=== PATIENT | female | born 1955 | race Caucasian/White ===

== ENCOUNTER 2018-06-17 20:48 | Inpatient (IN) | payer OTHER ==
[~2018-06-17] VITALS: Ht 172.7 cm; Wt 72.3 kg
[~2018-06-17 20:48] MED LIST: ACET325T26 PO; ALPR0.254 PO; AMLO10TA2 PO; AMLO5TAB2 PO; AMOX250C17 PO; ASCO10004 PO; ASPI-515 PO; ATOR20TA9 PO; CITA10TA4 PO; DOCU100C33 PO; FERROUS SULFATE PO; HYDR12.53 PO; HYDR25TA6 PO; LOSA25TA5 PO; MULT-516 PO; OMEP-110 PO; OXYC-302 PO; POTA20LI PO; ROPI1TAB2 PO
[2018-06-17] MEDS ORDERED: ONDANSETRON 2MG/ML, 2ML IVPush ONE (21:30)
[2018-06-17] MEDS ORDERED: MORPHINE SULFATE 4 MG/ML, 1ML IVPush PRN (21:30)
[2018-06-17] MEDS ORDERED: SODIUM CHLORIDE FLUSH 10ML SYR IVF ONE (21:30)
[2018-06-17] MEDS ORDERED: ONDANSETRON 2MG/ML, 2ML ONE (21:33)
[2018-06-17] MEDS ORDERED: MORPHINE SULFATE 4 MG/ML, 1ML ONE (21:33)
[2018-06-17] MEDS ORDERED: HYDROmorphone 2 MG/ML, 1ML ONE (22:26)
[2018-06-17] MEDS: HYDROmorphone 1 MG/ML, 1ML IVPush PRN ×2 (22:28→23:09)
[2018-06-17 22:33] LABS: BASOPHILS # (AUTO) 0.04 x10^3/uL (0-0.1); BASOPHILS % (AUTO) 0 % (0-1); EOSINOPHILS # (AUTO) 0.07 x10^3/uL (0-0.4); EOSINOPHILS % (AUTO) 1 % (1-7); LYMPHOCYTES % (AUTO) 10 % (22-44); MD NO; MEAN CORPUSCULAR HEMOGLOBIN 33.2 pg (27.0-34.8); MEAN CORPUSCULAR HGB CONC 34.9 g/dL (32.4-35.8); MEAN CORPUSCULAR VOLUME 95.3 fL (80-100); MEAN PLATELET VOLUME 8.3 fL (7.4-10.4); MONOCYTES # (AUTO) 0.79 x10^3/uL (0.2-0.8); MONOCYTES % (AUTO) 7 % (2-9); NEUTROPHILS # (AUTO) 9.16 x10^3/uL (1.8-6.8); NEUTROPHILS % (AUTO) 82 % (42-75); PLATELET COUNT 265 x10^3/uL (130-400); RED BLOOD COUNT 3.75 x10^6/uL (3.82-5.3); RED CELL DISTRIBUTION WIDTH 12.8 % (9.6-15.2)
[2018-06-17 22:45] LABS: ALBUMIN 3.9 g/dL (3.4-5.0); ANION GAP 8 mmol/L (5-15); CALCIUM 8.3 mg/dL (8.5-10.1); CHLORIDE 105 mmol/L (98-107); CREATININE 0.89 mg/dL (0.55-1.02)
[2018-06-17] MEDS ORDERED: SODIUM CHLORIDE 0.9% 1,000 ML IV SCH (23:33)
[2018-06-18] VITALS: BP 130/73
[2018-06-18] MEDS ORDERED: ONDANSETRON 2MG/ML, 2ML IVPush PRN
[2018-06-18] MEDS ORDERED: POLYETHYLENE GLYCOL 17 GM PACKET PO PRN
[2018-06-18] MEDS ORDERED: BISACODYL 10 MG SUPP PR PRN
[2018-06-18] MEDS ORDERED: POTASSIUM CHLORIDE 20 MEQ TAB.ER.PRT PO ONE
[2018-06-18] MEDS: morphine SULFATE 10 MG/ML, 1ML IVPush PRN ×6 (01:05→18:45)
[2018-06-18] MEDS: NICOTINE 21 MG/24 HR PATCH.TD24 TD SCH (01:56)
[2018-06-18 02:02] VITALS: BP 132/74
[2018-06-18] MEDS ORDERED: KETOROLAC 30 MG/1 ML ONE (03:07)
[2018-06-18] MEDS: KETOROLAC 30 MG/1 ML IM SCH ×2 (03:13→09:08)
[2018-06-18 04:01] VITALS: BP 121/74
[2018-06-18 05:45] LABS: BASOPHILS % (AUTO) 0 % (0-1); EOSINOPHILS # (AUTO) 0.01 x10^3/uL (0-0.4); EOSINOPHILS % (AUTO) 0 % (1-7); LYMPHOCYTES # (AUTO) 0.84 x10^3/uL (1-3.4); LYMPHOCYTES % (AUTO) 9 % (22-44); MD NO; MEAN CORPUSCULAR HGB CONC 34.6 g/dL (32.4-35.8); MEAN CORPUSCULAR VOLUME 95.5 fL (80-100); MEAN PLATELET VOLUME 8.6 fL (7.4-10.4); MONOCYTES # (AUTO) 0.75 x10^3/uL (0.2-0.8); MONOCYTES % (AUTO) 8 % (2-9); NEUTROPHILS # (AUTO) 7.59 x10^3/uL (1.8-6.8); NEUTROPHILS % (AUTO) 83 % (42-75); PLATELET COUNT 248 x10^3/uL (130-400); RED BLOOD COUNT 3.61 x10^6/uL (3.82-5.3); RED CELL DISTRIBUTION WIDTH 12.8 % (9.6-15.2)
[2018-06-18 05:55] LABS: ALBUMIN 3.8 g/dL (3.4-5.0); ANION GAP 8 mmol/L (5-15); CALCIUM 7.9 mg/dL (8.5-10.1); CHLORIDE 105 mmol/L (98-107)
[2018-06-18 06:00] LABS: ALANINE AMINOTRANSFERASE 99 U/L (12-78); ALKALINE PHOSPHATASE 98 U/L (45-117); BILIRUBIN,TOTAL 0.4 mg/dL (0.2-1.0); TOTAL PROTEIN 6.8 g/dL (6.4-8.2)
[2018-06-18 06:57] VITALS: BP 127/76
[2018-06-18] MEDS ORDERED: POTASSIUM CHLORIDE 40 MEQ in SODIUM CHLORIDE 0.9% 500 ML IV ONE (07:00)
[2018-06-18] MEDS: HEPARIN 5,000 UNITS/ML, 1ML SQ SCH ×3 (08:00→16:00)
[2018-06-18] MEDS: FERROUS SULFATE 325 MG TABLET PO SCH (08:09)
[2018-06-18] MEDS: MULTIVITAMIN 1 TABLET PO SCH (08:09)
[2018-06-18] MEDS: CITALOPRAM 10 MG TABLET PO SCH (08:09)
[2018-06-18] MEDS: OMEPRAZOLE 20 MG CAPSULE.DR PO SCH (08:10)
[2018-06-18] MEDS: SENNA/DOCUSATE TABLET PO SCH (08:10)
[2018-06-18] MEDS: ASCORBIC ACID 500 MG TABLET PO SCH (08:10)
[2018-06-18] MEDS: NS + 20MEQ KCL 1,000 ML IV SCH (09:00)
[2018-06-18] MEDS: LOSARTAN 25MG TABLET PO SCH (09:08)
[2018-06-18] MEDS: AMLODIPINE 5 MG TABLET PO SCH (09:08)
[2018-06-18 09:52] LABS: INTERNATIONAL NORMALIZED RATIO 0.97 (0.93-1.1)
[2018-06-18] MEDS ORDERED: POTASSIUM CHLORIDE 20 MEQ in SODIUM CHLORIDE 0.9% 250 ML IV ONE (11:30)
[2018-06-18 14:05] VITALS: BP 119/74
[2018-06-18] MEDS ORDERED: MIDAZOLAM 1 MG/ML, 2ML ONE (14:15)
[2018-06-18] MEDS ORDERED: FENTANYL PF 250 MCG/5ML ONE (14:15)
[2018-06-18] MEDS ORDERED: PROPOFOL 10 MG/ML, 20ML ONE (14:16)
[2018-06-18] MEDS ORDERED: ROCURONIUM 10MG/ML,5ML ONE (14:17)
[2018-06-18] MEDS ORDERED: NEOSTIGMINE 1 MG/ML, 10ML ONE (14:39)
[2018-06-18] MEDS ORDERED: GLYCOPYRROLATE 0.4 MG/2 ML, 2ML ONE (14:39)
[2018-06-18] MEDS ORDERED: DEXAMETHASONE 4 MG/ML, 1ML ONE ×2 (14:40)
[2018-06-18] MEDS ORDERED: ONDANSETRON 2MG/ML, 2ML ONE (14:40)
[2018-06-18] MEDS ORDERED: WATER-INJECTION,STERILE 10 ML IV ONE (14:41)
[2018-06-18] MEDS ORDERED: CEFAZOLIN 1,000 MG ONE ×2 (14:41)
[2018-06-18] MEDS ORDERED: MORPHINE SULFATE 4 MG/ML, 1ML IVPush PRN (16:00)
[2018-06-18] MEDS ORDERED: hydrALAzine 20 MG/ML, 1ML IV PRN (16:00)
[2018-06-18] MEDS ORDERED: MEPERIDINE/PF 25MG/0.5ML IVPush PRN (16:00)
[2018-06-18] MEDS ORDERED: OXYcodone 5 MG/5 ML ORAL.SOL UDC PO PRN (16:00)
[2018-06-18] MEDS ORDERED: ONDANSETRON 2MG/ML, 2ML IV PRN ×2 (16:00→19:00)
[2018-06-18] MEDS ORDERED: LABETALOL 5MG/ML, 20ML IV PRN (16:00)
[2018-06-18] MEDS ORDERED: ALBUTEROL SULFATE 2.5 MG/3 ML NPPB PRN (16:00)
[2018-06-18] MEDS ORDERED: PROMETHAZINE 25 MG/ML, 1ML IV PRN (16:00)
[2018-06-18] MEDS ORDERED: HYDROmorphone 1 MG/ML, 1ML IV PRN ×2 (16:00→19:00)
[2018-06-18] MEDS ORDERED: PROMETHAZINE 25 MG SUPP PR PRN (16:00)
[2018-06-18] MEDS ORDERED: ONDANSETRON ODT 8 MG PO PRN (16:00)
[2018-06-18] MEDS ORDERED: ACETAMINOPHEN 325 MG TABLET PO PRN ×2 (16:00)
[2018-06-18] MEDS ORDERED: PROMETHAZINE 12.5 MG SUPP PR PRN (16:00)
[2018-06-18] MEDS ORDERED: FENTANYL PF 100 MCG/2ML IV PRN (16:00)
[2018-06-18] MEDS ORDERED: PHENYLEPHRINE 10 MG/ML ONE (16:17)
[2018-06-18] MEDS ORDERED: OXYcodone 5 MG/5 ML ORAL.SOL UDC ONE (17:18)
[2018-06-18] MEDS ORDERED: ACETAMINOPHEN 650 MG/20.3 ML UDC ONE (17:18)
[2018-06-18 17:22] LABS: AMPHETAMINE SCREEN, URINE Negative (Negative); BARBITURATE SCREEN, URINE Negative (Negative); BENZODIAZEPINE SCREEN, URINE Positive (Negative); CANNABINOID SCREEN, URINE Negative (Negative)
[2018-06-18 17:23] LABS: COCAINE SCREEN, URINE Negative (Negative); METHADONE SCREEN, URINE Negative (Negative); OPIATE SCREEN, URINE Positive (Negative)
[2018-06-18] MEDS ORDERED: FENTANYL PF 100 MCG/2ML ONE (17:34)
[2018-06-18] MEDS ORDERED: MEPERIDINE/PF 25MG/0.5ML ONE (17:40)
[2018-06-18] MEDS ORDERED: DIPHENHYDRAMINE 25 MG CAPSULE PO PRN (19:00)
[2018-06-18] MEDS ORDERED: HYDROcodone/APAP 7.5-325MG/15ML UDC PO PRN (19:00)
[2018-06-18 20:00] VITALS: BP 93/53
[2018-06-18] MEDS: DOCUSATE 100 MG CAPSULE PO SCH (22:56)
[2018-06-18] MEDS: CEFAZOLIN PMX 1GM/50ML 50 ML IVPB SCH (22:56)
[2018-06-18] MEDS: ATORVASTATIN 20 MG TABLET PO SCH ×2 (22:56)
[2018-06-18] MEDS: KETOROLAC 30 MG/1 ML IV SCH (22:57)
[2018-06-19 00:45] VITALS: BP 102/64
[2018-06-19] MEDS: OXYcodone/APAP 5/325MG TABLET PO PRN ×2 (03:03→10:24)
[2018-06-19] MEDS: NICOTINE 21 MG/24 HR PATCH.TD24 TD SCH (03:11)
[2018-06-19] MEDS: NS + 20MEQ KCL 1,000 ML IV SCH ×2 (03:40→10:24)
[2018-06-19] MEDS ORDERED: SODIUM CHLORIDE 0.9%, 500ML IVBOLUS ONE (04:30)
[2018-06-19 05:40] LABS: BASOPHILS % (AUTO) 0 % (0-1); EOSINOPHILS % (AUTO) 0 % (1-7); LYMPHOCYTES # (AUTO) 0.48 x10^3/uL (1-3.4); LYMPHOCYTES % (AUTO) 7 % (22-44); MD NO; MEAN CORPUSCULAR HGB CONC 34.5 g/dL (32.4-35.8); MEAN CORPUSCULAR VOLUME 95.5 fL (80-100); MEAN PLATELET VOLUME 8.2 fL (7.4-10.4); MONOCYTES % (AUTO) 7 % (2-9); NEUTROPHILS # (AUTO) 6.06 x10^3/uL (1.8-6.8); NEUTROPHILS % (AUTO) 86 % (42-75); PLATELET COUNT 189 x10^3/uL (130-400); RED BLOOD COUNT 2.74 x10^6/uL (3.82-5.3); RED CELL DISTRIBUTION WIDTH 13.1 % (9.6-15.2)
[2018-06-19 05:49] LABS: ALBUMIN 2.8 g/dL (3.4-5.0); ANION GAP 4 mmol/L (5-15); CALCIUM 7.7 mg/dL (8.5-10.1); CHLORIDE 111 mmol/L (98-107); CREATININE 0.58 mg/dL (0.55-1.02)
[2018-06-19] MEDS ORDERED: ENOXAPARIN 40 MG/0.4 ML SQ SCH (06:00)
[2018-06-19] MEDS: CEFAZOLIN PMX 1GM/50ML 50 ML IVPB SCH (08:14)
[2018-06-19] MEDS: KETOROLAC 30 MG/1 ML IV SCH (08:14)
[2018-06-19] MEDS: DOCUSATE 100 MG CAPSULE PO SCH (08:15)
[2018-06-19] MEDS: FERROUS SULFATE 325 MG TABLET PO SCH (08:16)
[2018-06-19] MEDS: ASCORBIC ACID 500 MG TABLET PO SCH (08:16)
[2018-06-19] MEDS: CITALOPRAM 10 MG TABLET PO SCH (08:17)
[2018-06-19] MEDS: OMEPRAZOLE 20 MG CAPSULE.DR PO SCH (08:17)
[2018-06-19] MEDS: MULTIVITAMIN 1 TABLET PO SCH (08:17)
[2018-06-19 08:19] VITALS: BP 94/60
[2018-06-19] MEDS: LOSARTAN 25MG TABLET PO SCH (08:21)
[2018-06-19] MEDS: AMLODIPINE 5 MG TABLET PO SCH (08:22)
[2018-06-19] MEDS: SENNA/DOCUSATE TABLET PO SCH (08:29)
[2018-06-19] MEDS ORDERED: OXYC5CAP2 PO (13:41)
[2018-06-19] MEDS ORDERED: ASPI325T17 PO (13:42)
== END 2018-06-19 14:00 | disposition home or self-care (01) | DRG 482 ==
LOC: ED 23:59 → 4NOR 06-18 00:50 → DCLOUNGE 06-19 14:00
PROVIDERS: ADMIT Family Medicine; ATTEND Family Medicine
PROC: 0QS606Z Reposition Right Upper Femur with Intramedullary Internal Fixation Device, Open Approach (ICD-10-PCS; principal; 2018-06-18 15:30)
DX: S72.141A Displaced intertrochanteric fracture of right femur, initial encounter for closed fracture (principal); E87.6 Hypokalemia; F17.210 Nicotine dependence, cigarettes, uncomplicated; F41.1 Generalized anxiety disorder; F32.9 Major depressive disorder, single episode, unspecified; G25.81 Restless legs syndrome; I10 Essential (primary) hypertension; W18.30XA Fall on same level, unspecified, initial encounter; E78.00 Pure hypercholesterolemia, unspecified; K21.9 Gastro-esophageal reflux disease without esophagitis; E78.5 Hyperlipidemia, unspecified; Z90.49 Acquired absence of other specified parts of digestive tract; Z79.899 Other long term (current) drug therapy; Z85.820 Personal history of malignant melanoma of skin; Y93.89 Activity, other specified; Y92.89 Other specified places as the place of occurrence of the external cause; Y99.8 Other external cause status
CPT/HCPCS: 36415; 71045; 76000; 80048; 80053; 80307; 82040; 85025; 85610; 93005; 96374; 96375; 96376; C1713; J0690; J1100; J1170; J1644; J1650; J1885; J2175; J2250; J2405; J2704; J2710; J3010; J3480; J2270; J2370; J7030; J7040; J7050